=== PATIENT | female | born 1965 | race Caucasian/White ===

== ENCOUNTER 2019-11-26 14:51 | Emergency (ER) | payer MEDICAID ==
[~2019-11-26] VITALS: Ht 160 cm; Wt 67.1 kg
[2019-11-26 15:04] VITALS: BP 100/54
--- NOTE | 2019-11-26 15:18 | NUR ---
Pt taken to chair A
--- NOTE | 2019-11-26 15:32 | NUR ---
54 Y/O FEMALE C/O CELLULITIS TO LT KNEE S/P BUG BITE X 1 WEEK AGO. LT LEG SWOLLEN, RED, AND WARM TO THE TOUCH. PT ABLE TO AMBULATED. 7/10 PAIN TO LT KNEE. +CMS. RR EVEN AND UNLABORED. PT SITTING IN [place]ON CALM AND PLEASANT. VSS MEDHX: DENIES ALLERGIES: NKA
--- NOTE | 2019-11-26 15:36 | NUR ---
DR WATKINS AT BEDSIDE EXAMINING PT
[2019-11-26 15:47] VITALS: BP 100/54
--- NOTE | 2019-11-26 15:48 | NUR ---
Patient discharged with v/s stable. Written and verbal after care instructions given and explained. Patient alert, oriented and verbalized understanding of instructions. Ambulatory with steady gait. All questions addressed prior to discharge. ID band removed. Patient advised to follow up with PMD. Rx of BENADRY, KEFLEX, BACTRIM given. Patient educated on indication of medication including possible reaction and side effects. Opportunity to ask questions provided and answered.
== END 2019-11-26 15:48 | disposition home or self-care (01) ==
LOC: MED 14:51
DX: S80.262A Insect bite (nonvenomous), left knee, initial encounter (principal); L03.116 Cellulitis of left lower limb; I10 Essential (primary) hypertension; W57.XXXA Bitten or stung by nonvenomous insect and other nonvenomous arthropods, initial encounter; Y93.89 Activity, other specified; Y92.89 Other specified places as the place of occurrence of the external cause; Y99.8 Other external cause status
CPT/HCPCS: 99283